=== PATIENT | female | born 1940 | race Caucasian/White ===

== ENCOUNTER → 2017-02-11 | Emergency (ER) | payer MEDICARE, OTHER ==
[~2017-02-11] VITALS: Ht 165.1 cm; Wt 51.7 kg
[~2017-02-11] MED LIST: ACETAMINOPHEN325 M1 PO; ALPRAZOLAM0.5 MG PO; ASPIR 8181 MG PO; BENICAR40 MG PO; CARBIDOPA-LEVO1 EA10 PO; CEFEPIME HCL1 GM INJ; CEPHALEXIN250 MG PO; CIPRO500 MG PO; CIPROFLOXACIN500 MG PO; CLINDAMYCIN HC300 MG PO; CUBICIN500 MG/10 IV; FLUOXETINE HCL40 MG PO; FUROSEMIDE40 MG PO; HUMALOG100 UNIT/1 SUB-Q; HYDRALAZINE HCL25 MG PO; HYDROCODON-ACE1 EAC3 PO; IRON325 MG PO; LANTUS100 UNITS/; LEVAQUIN500 MG PO; LISINOPRIL20 MG PO; LOPRESSOR50 MG PO; MAG-OXIDE400 MG PO; METOPROLOL TART25 MG PO; MULTIVITAMINS1 EAC7 PO; MUPIROCIN22 GM TOP; NORCO 5-325 TA1 EACH PO; NORVASC5 MG PO; OMEPRAZOLE20 MG PO; OXYCODON-ACETA1 EACH PO; OXYCODONE HCL5 MG PO; PARVA-CAL 5001 EACH PO; PLAVIX75 MG PO; POLYETHYLENE GL17 GM PO; PRAVACHOL40 MG PO; SENNA8.6 MG PO; SYNTHROID50 MCG PO; XALATAN2.5 ML OP
--- OUTSIDE RECORDS SUMMARY | 2017-02-11 20:12 | XMS | Clinical Summary ---
Demographics + + + | Address | [address] | | | [place] [address] | + + + | Home Phone | | + + + | Preferred Language | Unknown | + + + | Marital Status | | + + + | Quaker Affiliation | CHR | + + + | Race | White | + + + | Ethnic Group | Not or | + + + Author + + + | Author | [facility] | + + + | Organization | [facility] | + + + | Address | Unknown | + + + | Phone | Unavailable | + + + Support +------+ + + + +-------+ | Name | Relationship | Address | Phone | +------+ + + + +-------+ ECON | [address] | | [place] | [address] | +------+ + + + +-------+ ECON | Unknown | | +------+ + + + +-------+ Care Team Providers + +------+-------+ | Care Apprentice Plumber Name | Role | Phone | + +------+-------+ | Brionna Flowers NP | PP | tel | + +------+-------+ Source Comments TISHA is fully live on both EpicCare Ambulatory and EpicCare InPatient.[facility] Allergies + + + + + + | Active Allergy | Reactions | Severity | Noted | Comments | | | | | Date | | + + + + + + | Diltiazem Hcl | Tachycardia | | 09/28/19 | | | | | | 13 | | + + + + + + | Corticosteroids | Unknown | | 09/29/19 | Per OS record, no | | (Glucocorticoids) | | | 13 | reaction listed. Pt | | | | | | and say no | | | | | | longer allergy to | | | | | | this. | + + + + + + Current Medications + + + +---------+------+------+-------+ | Prescription | Sig. | Disp. | Refills | Star | End | Statu | | | | | | t | Date | s | | | | | | Date | | | + + + +---------+------+------+-------+ | LANTUS SOLOSTAR | 15 Units once daily | | | 04 | | Activ | | 100 unit/mL (3 mL) | in the morning. | | | 12/07 | | e | | Subcutaneous Insulin | | | | 13 | | | | Pen | | | | | | | + + + +---------+------+------+-------+ | insulin regular | Inject under the | | | | | Activ | | 100 unit/mL | skin (SUBC) three | | | | | e | | Injection Solution | times daily before | | | | | | | | meals. 1unit per 15 | | | | | | | | carbs sliding scale. | | | | | | + + + +---------+------+------+-------+ | FLUoxetine 40 mg | Take 40 mg by mouth | | | | | Activ | | Oral capsule | once daily. | | | | | e | + + + +---------+------+------+-------+ | levothyroxine 50 | Take 50 mcg by mouth | | | | | Activ | | mcg Oral tablet | once daily. | | | | | e | + + + +---------+------+------+-------+ | | Take 1 Tab by mouth | | | | | Activ | | multivitamin-mineral | once daily. | | | | | e | | s Oral tablet | | | | | | | + + + +---------+------+------+-------+ | carbidopa-levodopa | Take 2 Tabs by mouth | | | | | Activ | | 25-100 mg Oral | three times daily. | | | | | e | | tablet | | | | | | | + + + +---------+------+------+-------+ | acetaminophen 325 | Take 1-2 Tabs by | | | / | | Activ | | mg Oral tablet | mouth every four | | | 09/06 | | e | | | hours as needed. | | | 13 | | | + + + +---------+------+------+-------+ | senna-docusate | Take 1 Tab by mouth | 60 Tab | 0 | / | | Activ | | 8.6-50 mg Oral | two times daily. | | | 09/06 | | e | | tabletIndications: | Indications: | | | 13 | | | | constipation | CONSTIPATION | | | | | | + + + +---------+------+------+-------+ | aspirin chewable | Take 81 mg by mouth | | | | | Activ | | 81 mg oral | once daily. | | | | | e | | tablet,chewable | | | | | | | + + + +---------+------+------+-------+ | calcium carbonate | Take 500 mg by mouth | | | | | Activ | | chewable 200 mg | once daily. | | | | | e | | calcium (500 mg) | | | | | | | | oral tablet,chewable | | | | | | | + + + +---------+------+------+-------+ | clopidogrel 75 mg | Take 75 mg by mouth | | | | | Activ | | oral tablet | once daily. | | | | | e | + + + +---------+------+------+-------+ | glucose chewable 4 | Take 4 tablets by | 10 | 0 | 01/18 | | Activ | | gram oral | mouth as needed for | tablet | | 04/08 | | e | | tablet,chewable | hypoglycemia (CBG | | | 15 | | | | | less than 70 mg/dL). | | | | | | | | Repeat in 10 | | | | | | | | minutes if | | | | | | | | necessary. Response | | | | | | | | should occur in 10 | | | | | | | | minutes. | | | | | | + + + +---------+------+------+-------+ | metoprolol | Take 0.5 tablets by | 28 | 0 | 01/18 | | Activ | | tartrate 25 mg oral | mouth two times | tablet | | 04/08 | | e | | tablet | daily. Please | | | 15 | | | | | follow-up with your | | | | | | | | PCP within the next | | | | | | | | week for best | | | | | | | | management of this | | | | | | | | medication. | | | | | | + + + +---------+------+------+-------+ | polyethylene | Take 17 g by mouth | 119 g | 0 | 01/18 | | Activ | | glycol 17 gram/dose | once daily as | | | 04/08 | | e | | oral powder | needed. Please hold | | | 15 | | | | | for loose or | | | | | | | | excessive stools | | | | | | | | greater than 2 per | | | | | | | | day. | | | | | | + + + +---------+------+------+-------+ | ALPRAZolam 0.5 mg | Take 0.5 mg by mouth | | | | | Activ | | oral tablet | every other day. | | | | | e | + + + +---------+------+------+-------+ | ferrous sulfate | Take 325 mg by mouth | | | | | Activ | | 325 mg (65 mg iron) | once daily. | | | | | e | | oral tablet | | | | | | | + + + +---------+------+------+-------+ | | Take 1 tablet by | | | | | Activ | | HYDROcodone-acetamin | mouth every six | | | | | e | | ophen 5-325 mg oral | hours as needed. Not | | | | | | | tablet | to exceed 3250 mg | | | | | | | | of acetaminophen | | | | | | | | from all products | | | | | | | | per 24 hour period. | | | | | | + + + +---------+------+------+-------+ | amLODIPine 10 mg | Take 1 tablet by | | | 01/2 | | Activ | | oral tablet | mouth once daily. | | | 0/20 | | e | | | | | | 16 | | | + + + +---------+------+------+-------+ | hydrALAZINE 25 mg | Take 1 tablet by | | | 01/2 | | Activ | | oral tablet | mouth three times | | | 0/20 | | e | | | daily. Please hold | | | 16 | | | | | for SBP less than | | | | | | | | 100. Please | | | | | | | | follow-up with your | | | | | | | | PCP for best | | | | | | | | management of this | | | | | | | | medication. | | | | | | + + + +---------+------+------+-------+ | olmesartan 20 mg | Take 2 tablets by | | | 01/2 | | Activ | | oral tablet | mouth once daily at | | | 0/20 | | e | | | bedtime. | | | 16 | | | + + + +---------+------+------+-------+ | furosemide 20 mg | Take 1 tablet by | | | 03/21 | | Activ | | oral tablet | mouth once daily. | | | 0/20 | | e | | | | | | 16 | | | + + + +---------+------+------+-------+ Active Problems + + + | Problem | Noted Date | + + + | Infection and inflammatory reaction due to vascular device, | 01/28/2015 | | implant, and graft (HCC) | | + + + | Encounter for long-term (current) use of antibiotics | 01/28/2015 | + + + + + | Overview: 01/28/15 Vascular Graft Infection | + + + + + | IDDM (insulin dependent diabetes mellitus) ([facility]) | 01/22/2015 | + + + + + | Overview: Diagnosed in the 1960s and on insulin since that | | time Last Assessment & Plan: Moderately controlled; Hb A1C 7.4 | | this month- appreciate Endocrine recs- lantus increased to 30 | | units qHS, lispro 10 units qAC with SSI | + + + + + | H/O thyroid disease s/p thyroidectomy | 01/22/2015 | + + + + + | Last Assessment & Plan: -Home dose of Levothyroxine | + + + + + | Glaucoma | 01/22/2015 | + + + | Peripheral arterial disease (HCC) | 01/22/2015 | + + + + + | Last Assessment & Plan: 01/21 Resection of fem-fem bypass | | graft, harvest of left greater saphenous vein, vein patch repair | | of left common femoral artery, wound vac to left groin, right | | groin incision with well incorporated graft material (Dylan Mcmanus) | | 01/23 A cross-femoral bypass graft originating from the distal | | aspect of the right axillofemoral bypass to the left profunda | | femoris artery using cryopreserved vein. 01/26 wound vac | | changed-Greatly improved left lower extremity doppler flows. | | -continue wound vac to suction-continue ASA and Plavix- SBP <140 | | goal per vascular- currently on day#7 of cefepime and vancomycin; | | per ID will need 6 weeks abx -- no need for long-term | | suppression | + + + + + | Postoperative anemia due to acute blood loss | 01/22/2015 | + + + + + | Last Assessment & Plan: - improved after total 3 units pRBC, | | last on 01/24 - H/H stable | + + + + + | Bone fixation device infection (HCC) | 05/06/2014 | + + + | Peripheral blood vessel disorder (HCC) | 09/21/2013 | + + + | Dislocated hip (HCC) | 09/28/2012 | + + + | Dislocation of hip joint prosthesis (HCC) | | + + + + + | Overview: Multiple recurrences, L | + + + +---+ | Dementia | | + +---+ + + | Overview: Mild, new dx | + + + +---+ | Parkinson disease (HCC) | | + +---+ + + | Last Assessment & Plan: -Home dose of Carbidopa-Levodopa | | -Home dose of zoloft | + + + +---+ | Essential hypertension | | + +---+ + + | Overview: ICD10 Last Assessment & Plan: SBP goal < 140 per | | vascular surgeryContinue metoprolol 12.5 BID, lisinopril 20 mg | | BID Given persistently elevated BPs will increase hydralazine to | | 50mg TID | + + + +---+ | CVA (cerebral vascular accident) (HCC) | | + +---+ + + | Overview: 1984 of unclear etiology, residual L sided weakness | | Last Assessment & Plan: Minor residual left leg weakness and | | left plantar foot numbness -ASA | + + Family History + +------+--------+ + | Relation | Name | Status | Comments | + +------+--------+ + Social History + + + +--------+ + | Tobacco Use | Types | Packs/Day | Years | Date | | | | | Used | | + + + +--------+ + | Former Smoker | Cigarettes | 1 | 47 | Quit: 10/06/2006 | + + + +--------+ + + + +---------+ + | Alcohol Use | Drinks/We | oz/Week | Comments | | | ek | | | + + +---------+ + | No | | | | + + +---------+ + + + + | Sex Assigned at | Date Recorded | | | | + + + | Not on file | | + + + Last Filed Vital Signs + + + + | Vital Sign | Reading | Time Taken | + + + + | Blood Pressure | 176/49 | 07/13/2015 12:00 PM PDT | + + + + | Pulse | 57 | 07/13/2015 12:00 PM PDT | + + + + | Temperature | 36.3 C (97.4 F) | 02/02/2015 12:52 PM PST | + + + + | Respiratory Rate | 18 | 01/28/2015 3:00 PM PST | + + + + | Oxygen Saturation | 98% | 07/13/2015 12:00 PM PDT | + + + + | Inhaled Oxygen | - | - | | Concentration | | | + + + + | Weight | 51.7 kg (114 lb) | 04/08/2015 3:16 PM PST | + + + + | Height | 165.1 cm (5' 5") | 02/09/2015 10:40 AM PST | + + + + | Body Mass Index | 18.97 | 04/08/2015 3:16 PM PST | + + + + Plan of Treatment + + + + + | Health Maintenance | Due Date | Last Done | Comments | + + + + + | INFLUENZA VACCINE | | | | | (FLU SHOT) | 7 | | | + + + + + Implants + +------+--------+ +--------+--------+--------+ | Implanted | Type | Area | Manufacture | Device | Expira | Model | | | | | r | | tion | / | | | | | | Identi | Date | Serial | | | | | | fier | | / Lot | + +------+--------+ +--------+--------+--------+ | Liner Pinn Con +4 10d | | Left: | PEDRO & | | | [id number] | | [id number] Revision Hip - | | Hip | PEDRO | | | 756 / | | [id number]: Qty: 1 on | | | DEPUY | | | / | | 09/30/2012 by Rivera Smith, | | | | | | | | MD | | | | | | | + +------+--------+ +--------+--------+--------+ | Palacos R+G Bone Cement | | Left: | SHAHEED | | 09/30/ | 00-111 | | W/Gentamicin - | | Hip | | | 2015 | 3-140- | | [id number]: Qty: 1 on | | | | | | / | | 09/30/2012 by Rivera Smith, | | | | | | /[id number] | | MD | | | | | | 316 | + +------+--------+ +--------+--------+--------+ | Palacos R+G Bone Cement | | Left: | SHAHEED | | 05/03/ | 00-111 | | W/Gentamicin - | | Hip | | | 2016 | 3-140- | | [id number]: Qty: 1 on | | | | | | / | | 09/30/2012 by Rivera Smith, | | | | | | /[id number] | | MD | | | | | | 362 | + +------+--------+ +--------+--------+--------+ | Lfit Anatomic V40 Femoral | | Left: | MARIELENA | | 12/31/ | 6260-9 | | HeadImplanted: Qty: 1 on | | Hip | | | 2016 | -036 / | | 09/30/2012 by Rivera Smith, | | | | | | | | | | | | | | /[id number] | | | | | | | | N | + +------+--------+ +--------+--------+--------+ | Femoral Vein >30cm - | | Right: | RESTOREFLOW | | 09/29/ | [id number] | | [id number]: Qty: | | Upper | ALLOGRAFTS | | 2020 | /[id number] | | 1 on 01/23/2015 by Belen, | | Leg | | | | [id number] | | MD Zeeshan | | | | | | 92 | | | | | | | | /[id number] | | | | | | | | 28 | + +------+--------+ +--------+--------+--------+ + +------+--------+ +--------+--------+--------+ | Explanted | Type | Area | Manufacture | Device | Expira | Model | | | | | r | | tion | / | | | | | | Identi | Date | Serial | | | | | | fier | | / Lot | + +------+--------+ +--------+--------+--------+ | Lfit Anatomic V40 Femoral | | Left: | MARIELENA | | 07/01/ | 6260-9 | | HeadExplanted: Qty: 1 on | | Hip | | | 2018 | -236 / | | 09/30/2012 by Rivera Smith, | | | | | | | | MD | | | | | | /[id number] | | | | | | | | N | + +------+--------+ +--------+--------+--------+ Results Not on filefrom Last 3 Months
== END ==
LOC: ED 18:13
DX: S70.12XA Contusion of left thigh, initial encounter (principal); Z86.73 Personal history of transient ischemic attack (TIA), and cerebral infarction without residual deficits; E11.9 Type 2 diabetes mellitus without complications; Z87.891 Personal history of nicotine dependence; Z96.642 Presence of left artificial hip joint; Z98.890 Other specified postprocedural states; W18.30XA Fall on same level, unspecified, initial encounter; Z79.899 Other long term (current) drug therapy; Z79.4 Long term (current) use of insulin; Z88.8 Allergy status to other drugs, medicaments and biological substances
CPT/HCPCS: 72100; 73502; 73552; 99283

== ENCOUNTER 2017-06-11 14:40 | Emergency (ER) | payer MEDICARE, OTHER ==
[~2017-06-11] VITALS: Ht 165.1 cm; Wt 51.7 kg
--- OUTSIDE RECORDS SUMMARY | 2017-06-11 14:57 | XMS | Clinical Summary ---
Demographics + + + | Address | [address] | | | [place] [address] | + + + | Home Phone | | + + + | Preferred Language | Unknown | + + + | Marital Status | | + + + | Yazidism Affiliation | TENRIISM | + + + | Race | White | + + + | Ethnic Group | Not or | + + + Author + + + | Author | [facility] | + + + | Organization | [facility] | + + + | Address | Unknown | + + + | Phone | Unavailable | + + + Care Team Providers + +------+ + | Care Detective Precinct Name | Role | Phone | + +------+ + PP | Unavailable | + +------+ + Allergies Not on File Current Medications Not on file Active Problems Not on file Social History + +-------+ +--------+------+ | Tobacco Use | Types | Packs/Day | Years | Date | | | | | Used | | + +-------+ +--------+------+ | Never Assessed | | | | | + +-------+ +--------+------+ + + + | Sex Assigned at | Date Recorded | | | | + + + | Not on file | | + + + Plan of Treatment + + + + + | Health Maintenance | Due Date | Last Done | Comments | + + + + + | Tetanus | | | | | | 2 | | | + + + + + | Breast Cancer | | | | | Screening | 3 | | | + + + + + | Colon Cancer | | | | | Screening | 3 | | | + + + + + | Zoster Vaccine (#1) | | | | | | 3 | | | + + + + + | Dexascan | | | | | | 8 | | | + + + + + | Pneumo 65+ (1 of 2 - | | | | | PCV13) | 8 | | | + + + + + | IMM Influenza (#1) | | | | | | 7 | | | + + + + + Results Not on filefrom Last 3 Months"
--- OUTSIDE RECORDS SUMMARY | 2017-06-11 14:57 | XMS | Clinical Summary ---
Demographics + + + | Address | [address] | | | [place] [address] | + + + | Home Phone | | + + + | Preferred Language | Unknown | + + + | Marital Status | | + + + | Mormon Affiliation | CHR | + + + [...] | Unavailable | + + + Support + + + + + | Name | Relationship | Address | Phone | + + + + + | Chris Del Real | ECON | [address] | | | | | [place] | | | | | [address] | | + + + + + | Lilo Christy | ECON | Unknown | | + + + + + Care Team Providers + +------+ + | Care Greenhouse Transplanter Name | Role | Phone | + +------+ + | Brionna Flowers NP | PP | | + +------+ + Source Comments TISHA is fully live on both EpicCare Ambulatory and EpicCare InPatient.[facility] Allergies + + + + + + [...] 15 Units once daily | | | 04/ | | Activ | | 100 unit/mL [...] Take 1-2 Tabs by | | | 07/1 | | Activ | | mg Oral tablet | mouth every four | | | 6/20 | | e | | | hours as needed. | | | 13 | | | + + + +---------+------+------+-------+ | senna-docusate | Take 1 Tab by mouth | 60 Tab | 0 | 07/1 | | Activ | | 8.6-50 mg Oral | two times daily. | | | 620 | | e | | tabletIndications: | [...] as needed for | tablet | | /20 | | e | | tablet,chewable | [...] mouth two times | tablet | | 20 | | e | | tablet | [...] | once daily as | | | 20 | | e | | oral powder [...] | mouth once daily. | | | 0 | | e | | | | [...] + | IDDM (insulin dependent diabetes mellitus) (HCC) | 01/22/2015 | + + + [...] Left: | PEDRO & | | | [id number] | | [id number] Revision Hip - | | Hip | PEDRO | | | 756 / | | [id number]: Qty: 1 on | | | DEPUY [...] | | 2015 | 3-140- | | [id number]: Qty: 1 on | | | | | | / | | 09/30/2012 by Rivera Smith, | | | | | | /[id number] | | MD | | | | | | 316 | + +------+--------+ +--------+--------+--------+ | Palacos R+G Bone Cement | | Left: | SHAHEED | | 05/03/ | - | | W/Gentamicin - | | Hip | | | 2016 | 3-140- | | [id number]: Qty: 1 on | | | | | | / | | 09/30/2012 by Rivera Smith, | | | | | | /[id number] | | MD | | | | | | 362 | + +------+--------+ +--------+--------+--------+ | Lfit Anatomic V40 Femoral | | Left: | MARIELENA | | 12/31/ | 6260-9 | | HeadImplanted: Qty: 1 on | | Hip | | | 2017 | -036 / | | 09/30/2012 by Rivera Smith, | | | | | | | | | | | | | | /[id number] | | | | | | | | N | + +------+--------+ +--------+--------+--------+ | Femoral Vein >30cm - | | Right: | RESTOREFLOW | | 09/29/ | [id number] | | [id number]: Qty: | | Upper | ALLOGRAFTS | | 2020 | /[id number] | | 1 on 01/23/2015 by Belen, | | Leg | | | | [id number] | | MD Zeeshan | | | [...]
--- OUTSIDE RECORDS SUMMARY | 2017-06-11 14:57 | XMS | Clinical Summary ---
Demographics + + + | Address | [address] | | | [place] [address] | + + + | Home Phone | | + + + | Preferred Language | Unknown | + + + | Marital Status | | + + + | Presybeterian Affiliation | CHR | + + + [...] [place] | | | | | [address] | | + + + + + | Lilo Christy | ECON | Unknown | | + + + + + Care Team Providers + +------+ + | Care Lace Burn Out Tender Name | Role | Phone | + +------+ + | Brionna Flowers NP | PP | | + +------+ + Source Comments TISHA is fully live on both EpicCare Ambulatory and EpicCare InPatient.[facility] Allergies + + + + + [...] Left: | PEDRO & | | | [id number] | | [id number] Revision Hip - | | Hip | PEDRO | | | 756 / | | [id number]: Qty: 1 on | | | DEPUY [...] | | 2015 | 3-140- | | [id number]: Qty: 1 on | | | | | | / | | 09/30/2012 by Rivera Smith, | | | | | | /[id number] | | MD | | | | | | 316 | + +------+--------+ +--------+--------+--------+ | Palacos R+G Bone Cement | | Left: | SHAHEED | | 05/03/ | - | | W/Gentamicin - | | Hip | | | 2016 | 3-140- | | [id number]: Qty: 1 on | | | | | | / | | 09/30/2012 by Rivera Smith, | | | | | | /[id number] | | MD | | | | [...] | | 09/29/ | [id number] | | [id number]: Qty: | | Upper | ALLOGRAFTS | | 2020 | [id number] | | 1 on 01/23/2015 by Belen, | | Leg | | | | [id number] | | MD Zeeshan | | | [...]
--- OUTSIDE RECORDS SUMMARY | 2017-06-11 14:57 | XMS | Clinical Summary ---
Demographics + + + | Address | [address] | | | [place] [address] | + + + | Home Phone | | + + + | Preferred Language | Unknown | + + + | Marital Status | | + + + | Orthodoxy Affiliation | MORAVIAN | + + + | Race | [...] Team Providers + +------+ + | Care Dumper [employer] Name | Role | Phone | + [...]
--- NOTE | 2017-06-12 06:18 | EKG ---
[facility] [address] [place], [place] [address] Signed Sinus bradycardia with short DC Cannot rule out Inferior infarct , age undetermined Abnormal ECG No previous ECGs available Confirmed by KAILYN JANSEN MD ([id number]) on 06/12/2017 6:18:38 AM Electronically Signed By: KAILYN JANSEN MD 06/12/17 0618 PATIENT NAME: ELVIE JACOBSY SPEEDY Electrocardiogram DATE OF : 44 PHYSICIAN: KAILYN JANSEN MD REPORT #: [id number] REPORT IS CONFIDENTIAL AND NOT TO BE RELEASED WITHOUT AUTHORIZATION
== END 2017-06-11 20:14 | disposition home or self-care (01) ==
LOC: ED 14:40
PROC: 0T9B70Z Drainage of Bladder with Drainage Device, Via Natural or Artificial Opening (ICD-10-PCS; principal; 2017-06-11)
DX: R53.1 Weakness (principal); E11.22 Type 2 diabetes mellitus with diabetic chronic kidney disease; I12.9 Hypertensive chronic kidney disease with stage 1 through stage 4 chronic kidney disease, or unspecified chronic kidney disease; N18.9 Chronic kidney disease, unspecified; Z86.73 Personal history of transient ischemic attack (TIA), and cerebral infarction without residual deficits; E03.9 Hypothyroidism, unspecified; F03.90 Unspecified dementia, unspecified severity, without behavioral disturbance, psychotic disturbance, mood disturbance, and anxiety; G20 Parkinson's disease; Z79.899 Other long term (current) drug therapy; Z79.2 Long term (current) use of antibiotics; Z79.4 Long term (current) use of insulin; Z79.82 Long term (current) use of aspirin
CPT/HCPCS: 36415; 51701; 71045; 80053; 81001; 83880; 84439; 84443; 84484; 85025; 93005; 93010; 99284

== ENCOUNTER 2017-09-10 10:04 | Emergency (ER) | payer MEDICARE, OTHER ==
[~2017-09-10] VITALS: Ht 165.1 cm; Wt 51.7 kg
== END 2017-09-10 11:33 | disposition home or self-care (01) ==
LOC: ED 10:04
DX: S80.12XA Contusion of left lower leg, initial encounter (principal); E11.22 Type 2 diabetes mellitus with diabetic chronic kidney disease; I50.9 Heart failure, unspecified; N18.9 Chronic kidney disease, unspecified; E03.9 Hypothyroidism, unspecified; F03.90 Unspecified dementia, unspecified severity, without behavioral disturbance, psychotic disturbance, mood disturbance, and anxiety; Z88.4 Allergy status to anesthetic agent; Z79.899 Other long term (current) drug therapy; Z79.4 Long term (current) use of insulin; Z79.82 Long term (current) use of aspirin; Z79.01 Long term (current) use of anticoagulants; X50.1XXA Overexertion from prolonged static or awkward postures, initial encounter
CPT/HCPCS: 73590; 93971; 99284